=== PATIENT | female | born 1985 | race Two or more races ===

== ENCOUNTER 2019-12-17 19:12 | Emergency (ER) | payer MEDICAID ==
[~2019-12-17] VITALS: Ht 160 cm; Wt 45.4 kg
[2019-12-17 20:35] LABS: Basophils # (auto) 0 10 ^3/uL (0-0.2); Basophils % (auto) 0.6 % (0.0-2.0); Eosinophils # (auto) 0.1 10 ^3/uL (0-0.8); Eosinophils % (auto) 1.3 % (0.0-7.0); Hematocrit 40.5 % (36.0-46.0); Hemoglobin 13.5 g/dL (12.2-16.2); Lymphocytes # (auto) 2.3 10 ^3/uL (0.4-5.4); Mean Corpuscular Hemoglobin 31.1 pg (28.0-32.0); Mean Corpuscular Hgb Conc. 33.3 g/dL (32.0-36.0); Mean Corpuscular Volume 93.5 fL (80.0-100.0); Monocytes # (auto) 0.5 10 ^3/uL (0-1.3); Monocytes % (auto) 7.1 % (0.0-12.0); Neutrophils # (auto) 4.7 10 ^3/uL (1.6-8.6); Nucleated Red Blood Cells % 0.1 %; Platelet Count (auto) 236 10^3/uL (140-450); Red Blood Cells 4.33 10^6/uL (4.0-5.20); Red Cell Distribution Width 12.9 % (11.8-14.3); White Blood Cell 7.6 10^3/uL (4.4-10.8)
[2019-12-17 20:36] LABS: Albumin 3.9 g/dL (3.4-5.0); Anion Gap 4 (5-15); Blood Urea Nitrogen 9 mg/dL (7-18); Calcium 8.5 mg/dL (8.5-10.1); Carbon Dioxide 25 mmol/L (21-32); Chloride 110 mmol/L (98-107); Glucose 80 mg/dL (74-106); Magnesium 2.3 mg/dL (1.6-2.6); Potassium 3.7 mmol/L (3.5-5.1); Sodium 139 mmol/L (136-145)
[2019-12-17 20:43] LABS: Alanine Aminotransferase 13 U/L (13-56); Alkaline Phosphatase 58 U/L (45-117); Aspartate Aminotransferase 8 U/L (15-37); BUN/Creatinine Ratio 16.4; Bilirubin, Total 0.5 mg/dL (0.2-1.0); GFR African American 165 mL/min; GFR Non-African American 136 mL/min; Total Protein 7.6 g/dL (6.4-8.2)
[2019-12-17 20:45] LABS: Beta HCG, Quantitative < 1 mlU/mL (1-3)
[2019-12-17 21:02] LABS: INR 0.99 (0.9-1.15); Partial Thromboplastin Time 28.7 sec (23.0-31.2)
[2019-12-17] MEDS ORDERED: IOHEXOL 350 MG/ML 100ML IJ ONE (22:06)
[2019-12-18 01:15] VITALS: BP 125/70
== END 2019-12-18 02:00 | disposition home or self-care (01) ==
LOC: ER 19:12
DX: R07.89 Other chest pain (principal)
CPT/HCPCS: 36415; 71275; 80053; 83735; 83880; 84443; 84484; 84702; 85025; 85379; 85610; 85730; 93005; 99285; Q9967